=== PATIENT | female | born 1935 | race Caucasian/White ===

== ENCOUNTER 2016-10-27 15:39 | Inpatient (IN) | payer MEDICARE, BC ==
[~2016-10-27] VITALS: Ht 152.4 cm; Wt 49.3 kg
[~2016-10-27 15:39] MED LIST: ASPIRIN E.C. 8181 MG PO; CARDI-OMEGA1000 MG PO; CITRUS CALCIUM200 MG PO; SIMVASTATIN40 MG PO; VERAPAMIL240 MG/TAB PO
[2016-12-05] MEDS ORDERED: CALCIUM 600MG+D1 TAB PO (13:47)
[2016-12-05] MEDS ORDERED: ZESTRIL 20MG TA20 MG PO (13:48)
[2016-12-05] MEDS ORDERED: ZOCOR 10MG10 MG PO (13:48)
[2016-12-05] MEDS ORDERED: FOLIC ACID 40400 MCG PO (13:49)
[2016-12-05] MEDS ORDERED: VITAMIN C500 MG PO (13:49)
[2016-12-05] MEDS ORDERED: MIRALAX PA17 GM/Dose PO (13:49)
[2016-12-05] MEDS ORDERED: FERROUS SU325 MG/TAB PO (13:50)
[2016-12-05] MEDS ORDERED: ALEVE 220MG220 MG PO (13:50)
[2016-12-09] VITALS (13 sets, daily range): BP systolic 95–170; BP diastolic 39–65; PULSE 60–76; TEMP 97.5–98.9
--- NOTE | 2016-12-09 10:45 | NUR ---
returned to room from PACU per bed, awake and alert but sleepy, O2 on at 3L/NC and O2 sat 100%, gandhi cath patent draining clear yellow urine, aquacel dressing to left shoulder CD&I, abduction sling in place to left upper arm, full assessment completed, see interventions for further info, rolled to side and no wrinkles in linens or wires under patient, SCDS on bilaterally,
--- NOTE | 2016-12-09 11:00 | NUR ---
dozing between checks, daughter and son at bedside
--- NOTE | 2016-12-09 11:15 | NUR ---
resting quietly, states pain is "OK", given sips of water and tolerates well
--- NOTE | 2016-12-09 12:00 | NUR ---
rests quietly betwen checks, given pudding and applesauce and if toelrates will instruct on ordering regular food, denies needs,
--- NOTE | 2016-12-09 12:30 | NUR ---
had pudding and applesauce and tolerated well
--- NOTE | 2016-12-09 13:00 | NUR ---
Dr Alonzo in to see patient, continues to doze between checks
--- NOTE | 2016-12-09 13:30 | NUR ---
massielwakens easily and just states she is sleepy, offered regular food but declines at this time, denies needs
--- NOTE | 2016-12-09 13:52 | NUR ---
radiology in for xrays of left shoulder
--- NOTE | 2016-12-09 15:15 | NUR ---
appears to be sleeping, in bed with eyes closed, resp quiet and easy
--- NOTE | 2016-12-09 15:39 | NUR ---
home health care worker met with patient to discuss discharge planning. Patient lives alone in [place], [place] and plans to return upon discharge. Patient's daughter, Vashti #[phone] plans to stay with patient Thursday night. Will continue to follow to assist with discharge planning. Patient's primary care physician is Dr Soliz in [place]. Patient denies difficulty obtaining her prescriptions.
--- NOTE | 2016-12-09 16:45 | NUR ---
awake now and visiting with daughter, instructed on ordering regular food and verbalizes understanding
--- NOTE | 2016-12-09 19:04 | NUR ---
bedside shift report given to MALLY koo
--- NOTE | 2016-12-09 21:49 | NUR ---
Assessment completed. Patient is A&O x 4. VSS, remains on 2 liters of supplemental oxygen via nasal cannula through the night per orders. Denies any pain at this time. Aquacell dressing to left shoulder is CDI with immbolizer maintained and ice. Reports tingling to left lower arm at this time. BLE scds on. Indwelling gandhi catheter to DD with yellow clear output. Tolerating diet with no c/o nausea. IVF infusings with intermittent antibiotic per orders. Daughter is at bedside tonight. Voices no concerns or needs. Bed is in a low position with call light in reach.
[2016-12-10 04:59] VITALS: BP 113/48; PULSE 70; TEMP 98.4
[2016-12-10 05:28] LABS: HEMATOCRIT 33.3 % (37.0-47.0); HEMOGLOBIN 10.9 g/dl (12.5-16.0)
--- NOTE | 2016-12-10 06:32 | NUR ---
Patient has rested well through the night. VSS. Continues to deny pain at this time. Aquacell dressing to left shoulder is CDI with immbolizer and ice maintained. Indwelling gandhi catheter to DD with large amount of yellow clear. INT this morning as antibiotics are finished. Daughter remains at bedside. Bed is in a low position with call light in reach.
--- NOTE | 2016-12-10 06:53 | NUR ---
REPORT FROM NONA BAL.
[2016-12-10 07:29] VITALS: BP 104/47; PULSE 68; TEMP 97.8
--- NOTE | 2016-12-10 09:19 | NUR ---
PT SITTING UP IN BED PT CONTINUES TO DENY PAIN AND REFUSING PAIN MEDICATIONS AT THIS TIME. DRESSING TO LEFT SHOULDER CDI. STRONG RADIAL PULSES BILATERALLY. DAUGHTER AT BEDSIDE.
--- NOTE | 2016-12-10 11:05 | NUR ---
Initial visit; Patient and daughter, Vashti thanked Pin Attacher for looking in on Sofi, listening and offering encouragement.
--- NOTE | 2016-12-10 11:24 | NUR ---
mechanical maintenance worker met with patient and daughter. Patient plans discharge home today and has made arrangements with local transportation bus and son to take her to outpatient therapy appointments in [place]. Patient states she is open to bathing assistance and worker made a referral to [facility]. Patient is aware of the private pay cost and will contact agency to schedule appointments.
[2016-12-10 11:34] VITALS: BP 108/35; PULSE 60; TEMP 98.3
[2016-12-10 16:09] VITALS: BP 104/42; PULSE 57; TEMP 97.6
--- NOTE | 2016-12-10 20:00 | NUR ---
Assessment completed. Patient is A&O x 4 states she's feeling much better than earlier today when she was feeling "groggy." VSS, blood pressure is 101/44 patient has run in the low 100's since surgery. Denies any pain at this time. Aquacell dressing to left shoulder is CDI with shoulder immbolizer and ice maintained. BLE scds on. Voiding with no difficulitites, urine is yellow clear. Tolerating diet with no c/o nausea. Ambulated in the hallway with staff, gait was steady. Voices no concerns or needs at this time. Bed is in a low position with call light in reach.
--- NOTE | 2016-12-10 20:04 | NUR ---
REPORT TO NONA BAL.
[2016-12-10 20:21] VITALS: BP 101/44; PULSE 62; TEMP 98
[2016-12-10 23:48] VITALS: BP 105/50; PULSE 53; TEMP 97.9
[2016-12-11 03:28] VITALS: BP 107/47; PULSE 60; TEMP 97
[2016-12-11 05:27] LABS: HEMATOCRIT 31.2 % (37.0-47.0)
--- NOTE | 2016-12-11 05:36 | NUR ---
Patient has rested well throughout the night. VSS. Continues to deny any pain. Aquacell dressing to left shoulder is CDI with immbolizer and ice maintained. BLE scds on. No complaints or needs. Bed remains in a low position with call light in reach.
--- NOTE | 2016-12-11 07:17 | NUR ---
BEDSIDE REPORT FROM NONA BAL. DR ZAVALA IN TO SEE PT THIS AM SEE CHART FOR ORDERS. DR. BATISTA CONSULTED FOR MEDICAL MANGEMENT OF POST OP HYPOTENSION. RN STUDENT LIBERTAD TO WORK WITH PT THIS SHIFT.
--- NOTE | 2016-12-11 07:22 | NUR ---
Bedside shift report given to MALLY Chatterjee.
--- NOTE | 2016-12-11 08:11 | NUR ---
Pt is pleasant and cooperative during assessment. Reports pain in the left shoulder is muscular soreness. Currently has ice pack in place on left shoulder while sitting in the recliner. Call light and personal items within reach.
[2016-12-11 08:13] VITALS: BP 124/46; PULSE 66; TEMP 97.8
--- NOTE | 2016-12-11 09:31 | NUR ---
tankroom worker met with patient and nurse as patient now desires [facility] bed with Dr Soliz. Worker made a referral to Barbara at [facility]. Patient states her family can transport upon discharge. Will await screening.
[2016-12-11 12:26] VITALS: BP 179/58; PULSE 62; TEMP 97.5
[2016-12-11 13:11] LABS: BASO % 0.2 % (0.0-2.0); GRAN # 19.5 (1.4-6.5); GRAN % 84.4 % (42.2-75.2); LYMPH # 1.9 (1.2-3.4); LYMPH % 8.2 % (20.0-51.0); MEAN CELL VOLUME 92 fl (80.0-100.0); MEAN CORPUSCULAR HGB CONC 33 g/dl (33.0-37.0); MEAN PLATELET VOLUME 10.8 fl (7.4-10.4); MONO # 1.5 (0.1-0.6); MONO % 6.3 % (1.7-9.3); PLATELET COUNT 323 K/mm3 (130-400); RED BLOOD COUNT 3.96 M/mm3 (4.10-5.30); REDCELL DISTRIBUTION WIDTH-CV 13.8 % (11.5-14.5)
[2016-12-11 13:20] LABS: CALCIUM 9.6 mg/dL (8.4-10.2); CREATININE, serum 0.84 mg/dL (0.52-1.25); HEMATOCRIT 36.3 % (37.0-47.0); HEMOGLOBIN 11.8 g/dl (12.5-16.0); MAGNESIUM 2.2 mg/dL (1.6-2.3); MEAN CORPUSCULAR HEMOGLOBIN 30 pg (27.0-31.0); POTASSIUM 4.2 mmol/L (3.4-5.0)
--- NOTE | 2016-12-11 14:14 | NUR ---
Barbara with [facility] bed feels that patient will be accepted on 12/12/16. Patient states her son will transport. Worker spoke with daughter and advised of above plan, per patient's request.
--- NOTE | 2016-12-11 19:11 | NUR ---
REPORT TO CAROL BAL.
[2016-12-11 19:15] LABS: COLLECTION METHOD CLEAN CATCH
[2016-12-11 19:20] LABS: PH 6 (5-8); SQUAMOUS EPITHELIAL None Seen /hpf; URINE APPEARANCE Clear; URINE BACTERIA None Seen /hpf; URINE BILIRUBIN Negative (NEGATIVE); URINE BLOOD Negative (NEGATIVE); URINE COLOR Yellow; URINE GLUCOSE Negative (NEGATIVE); URINE KETONE Negative (NEGATIVE); URINE LEUKOCYTE ESTERASE Negative (NEGATIVE); URINE NITRATE Negative (NEGATIVE); URINE PROTEIN(semi-quant) Negative (NEGATIVE); URINE RBC 0-2 /hpf
--- NOTE | 2016-12-11 20:00 | NUR ---
PT READY FOR BED. UP TO BR. THEN INTO BED. CALL LIGHT IN REACH. S
--- NOTE | 2016-12-11 20:00 | NUR ---
PT SITTING UP IN RECLINER. LEFT SHOULDER DRSG CDI. IMMOBILIZER INTACT. PAIN LEVEL4. SEE MAR FOR SCD TYLENOL. [facility], PT READY FOR BED. PT RELATES HAVING NO OTHER S/S TIA OR CVA. CALL LIGHT IN REACH.
[2016-12-11 20:40] VITALS: BP 147/62; PULSE 74; TEMP 98
[2016-12-12 00:04] VITALS: BP 130/52; PULSE 66; TEMP 97.7
[2016-12-12 04:41] LABS: HEMOGLOBIN 10.5 g/dl (12.5-16.0)
[2016-12-12 05:02] VITALS: BP 147/49; PULSE 62; TEMP 97.9
--- NOTE | 2016-12-12 05:53 | NUR ---
PT HAS SLEPT WELL THROUGH THE NIGHT. NO DISORIENTATION.
--- NOTE | 2016-12-12 06:39 | NUR ---
PT SLEPT VERY WELL LAST NIGHT. PT NO TIA- LIKE EPISODE THROUGHOUT THE NIGHT.
--- NOTE | 2016-12-12 08:00 | NUR ---
PATIENT IS A&O. VSS. PATIENT REPORTS PAIN IN RLE IS MANAGED BUT MAY WANT SOMETHING FOR PAIN BEFORE AM THERAPY. RTK DRESSING IS CD&I WITH AQUACEL. TEDS TO BLE. SCD'S CURRENTLY OFF. POSITIVE PEDAL PULSES TO BLE. PATIENT EAT/DRINK/VOIDING SUFFICENT AMOUNTS. NO C/O N/V. BREAKFAST TRAY AT BEDSIDE. AM MEDS GIVEN BY STUDENT. SEE STUDENT NOTES. HEAD TO TOE ASSESSMENT COMPLETE. NO OTHER NEEDS. CALL LIGHT IN REACH.
[2016-12-12 09:25] VITALS: BP 159/55; PULSE 69; TEMP 97.7
--- NOTE | 2016-12-12 09:32 | NUR ---
Pt is currently resting in bed with lights off and personal items in place. Ice pack has been applied to the left shoulder following session with physical therapy. Pt reports improvement in pain following morning scheduled Tylenol PO 1000mg. Denies any need for further PRN medication administration.
--- NOTE | 2016-12-12 11:30 | NUR ---
horticulture worker met with patient and presented IM. Jimenez with [facility] accepts patient to swing bed today. Patient states her son will transport today and will arrive before Noon. Worker faxed orders to [facility].
[2016-12-12 11:31] VITALS: BP 159/55; PULSE 69; TEMP 97.7
--- NOTE | 2016-12-12 11:32 | NUR ---
Follow-up visit; Patient thanked [employer] Pl[employer] Bullet Maker for looking in on her again and wishing her well and offering God's blessings.
[2016-12-12 11:42] VITALS: BP 159/55; PULSE 69; TEMP 97.7
--- NOTE | 2016-12-12 12:20 | NUR ---
LAB AT BEDSIDE.
--- NOTE | 2016-12-12 12:30 | NUR ---
LAB RESULTS REPORTED TO HOSPITALIST HEALTH DATA ANALYST. OK TO DISCHARGE PER HOSPITALIST. FAMILY AT BEDSIDE AND READY TO GO.
[2016-12-12 12:32] LABS: BASO % 0.2 % (0.0-2.0); EOS # 0.2 (0.0-0.7); EOS % 1.3 % (0-4.0); GRAN # 12.5 (1.4-6.5); GRAN % 69.9 % (42.2-75.2); LYMPH # 3.9 (1.2-3.4); LYMPH % 21.7 % (20.0-51.0); MEAN CELL VOLUME 93 fl (80.0-100.0); MEAN CORPUSCULAR HGB CONC 32 g/dl (33.0-37.0); MEAN PLATELET VOLUME 10.1 fl (7.4-10.4); MONO # 1.1 (0.1-0.6); MONO % 6.4 % (1.7-9.3); PLATELET COUNT 340 K/mm3 (130-400); RED BLOOD COUNT 3.96 M/mm3 (4.10-5.30)
[2016-12-12 12:33] LABS: HEMATOCRIT 36.8 % (37.0-47.0); HEMOGLOBIN 11.9 g/dl (12.5-16.0); MEAN CORPUSCULAR HEMOGLOBIN 30 pg (27.0-31.0)
--- NOTE | 2016-12-12 12:45 | NUR ---
PATIENT DISCHARGING VIA WHEELCHAIR TO PERSONAL VEHICLE WITH SON. PATIENT DISCHARGING TO [facility]. CALLED REPORT TO NURSE AT [facility]. DISCHARGE INFO PACKET GIVEN TO FAMILY. DC'D RIGHT FORARM IV. IV CATH TIP INTACT AND PATIENT TOLERATED WELL. COVERED SITE WITH BANDAID. CHANGED LTS DRESSING AND APPLIED NEW AQUACEL. PATIENT NOW DISCHARGED.
== END 2016-12-12 12:45 | disposition swing bed (61) | DRG 483 ==
LOC: JCC 12-09 05:45
PROVIDERS: Internal Medicine; Nurse Practitioner; ADMIT Orthopaedic Surgery
PROC: 0RRK0JZ Replacement of Left Shoulder Joint with Synthetic Substitute, Open Approach (ICD-10-PCS; principal; 2016-12-09 07:30)
DX: M19.012 Primary osteoarthritis, left shoulder (principal); I10 Essential (primary) hypertension; I48.91 Unspecified atrial fibrillation; Z85.3 Personal history of malignant neoplasm of breast; I95.81 Postprocedural hypotension
CPT/HCPCS: 99223; 99232-AI; A4315; A9284; C1713; C1776; J0171; J0330; J0690; J1100; J1170; J1885; J2250; J2405; J2704; J3010; J7120

== ENCOUNTER → 2016-11-20 | Outpatient (CLI) | payer MEDICARE, BC ==
[~2016-11-20] MED LIST changes: +ALEVE 220MG220 MG PO; +CALCIUM 600MG+D1 TAB PO; +FERROUS SU325 MG/TAB PO; +FOLIC ACID 40400 MCG PO; +MIRALAX PA17 GM/Dose PO; +VITAMIN C500 MG PO; +ZESTRIL 20MG TA20 MG PO; +ZOCOR 10MG10 MG PO
[2016-11-20 16:33] LABS: HIV 1/2 Antibodies Non-Reactive; HIV-1p24 Antigen Non-Reactive
== END ==
LOC: COL.LAB 15:32
PROVIDERS: Orthopaedic Surgery
DX: Z01.812 Encounter for preprocedural laboratory examination (principal)

== ENCOUNTER 2017-04-15 15:41 | Inpatient (IN) | payer MEDICARE, BC ==
[~2017-04-15] VITALS: Ht 152.4 cm; Wt 52.8 kg
[2017-06-30] MEDS ORDERED: ARIMIDEX1 MG PO (07:23)
[2017-06-30] MEDS ORDERED: ZOCOR 20MG20 MG PO (07:25)
[2017-06-30] MEDS ORDERED: COREG 6.256.25 MG/TA PO (07:27)
[2017-07-01] VITALS (12 sets, daily range): BP systolic 126–155; BP diastolic 54–78; PULSE 16–77; TEMP 97.8–98.2
[2017-07-01] MEDS ORDERED: PRINIVIL20 MG PO (05:34)
[2017-07-02 04:39] VITALS: BP 105/66; PULSE 80; TEMP 97.9
[2017-07-02 04:44] VITALS: BP 132/55; PULSE 65; TEMP 98.6
[2017-07-02 06:19] LABS: HEMATOCRIT 33.8 % (37.0-47.0); HEMOGLOBIN 11.1 g/dl (12.5-16.0)
[2017-07-02] MEDS ORDERED: NORCO 325 MG-7.1 TAB PO (06:51)
[2017-07-02] MEDS ORDERED: ASPI325T6 PO (06:51)
[2017-07-02] MEDS ORDERED: ROXICODONE 55 MG/TAB PO (06:52)
[2017-07-02 07:55] VITALS: BP 148/58; PULSE 65; TEMP 97.9
[2017-07-02 11:01] VITALS: BP 137/58; PULSE 55; TEMP 98.1
[2017-07-02 15:24] VITALS: BP 106/42; PULSE 55; TEMP 98
[2017-07-02 19:39] VITALS: BP 117/39; PULSE 65; TEMP 98.1
[2017-07-03 00:21] VITALS: BP 168/56; PULSE 61; TEMP 97.2
[2017-07-03 04:34] VITALS: BP 133/43; PULSE 65; TEMP 98
[2017-07-03 08:00] VITALS: BP 126/85; PULSE 59; TEMP 97.9
[2017-07-03 11:21] VITALS: BP 140/62; PULSE 56; TEMP 98.1
[2017-07-03 16:30] VITALS: BP 191/74; PULSE 68; TEMP 97.8
[2017-07-03 20:46] VITALS: BP 130/42; PULSE 67; TEMP 98
[2017-07-04 00:23] VITALS: BP 120/45; PULSE 65; TEMP 98.5
[2017-07-04 04:16] VITALS: BP 111/42; PULSE 63; TEMP 98.6
[2017-07-04 08:31] VITALS: BP 140/56; PULSE 82; TEMP 99.2
== END 2017-07-04 11:25 | disposition swing bed (61) | DRG 470 ==
LOC: JCC 07-01 05:09
PROVIDERS: Orthopaedic Surgery
PROC: 0SRD0J9 Replacement of Left Knee Joint with Synthetic Substitute, Cemented, Open Approach (ICD-10-PCS; principal; 2017-07-01 07:30)
DX: M17.12 Unilateral primary osteoarthritis, left knee (principal); I10 Essential (primary) hypertension; Z96.612 Presence of left artificial shoulder joint; Z85.3 Personal history of malignant neoplasm of breast
CPT/HCPCS: A4314; A9284; C1713; C1776; J0690; J1100; J2250; J2405; J2704; J3010; J7120

== ENCOUNTER → 2017-04-22 | Outpatient (CLI) | payer MEDICARE, BC | LOC: MC.RAD 08:53 | DX: Z12.31 Encounter for screening mammogram for malignant neoplasm of breast (principal); Z85.3 Personal history of malignant neoplasm of breast; Z92.3 Personal history of irradiation; Z98.890 Other specified postprocedural states ==

== ENCOUNTER → 2017-06-24 | Outpatient (CLI) | payer MEDICARE, BC ==
[2017-06-24 12:22] LABS: HIV 1/2 Antibodies Non-Reactive; HIV-1p24 Antigen Non-Reactive
== END ==
LOC: COL.LAB 11:13
PROVIDERS: Orthopaedic Surgery
DX: Z01.812 Encounter for preprocedural laboratory examination (principal); M17.12 Unilateral primary osteoarthritis, left knee

== ENCOUNTER 2017-09-28 09:31 | Inpatient (IN) | payer MEDICARE, BC ==
[~2017-09-28] VITALS: Ht 152.4 cm; Wt 56.7 kg
[~2017-09-28 09:31] MED LIST changes: +ARIMIDEX1 MG PO; +ASPI325T6 PO; +COREG 6.256.25 MG/TA PO; +NORCO 325 MG-7.1 TAB PO; +PRINIVIL20 MG PO; +ROXICODONE 55 MG/TAB PO; +ZOCOR 20MG20 MG PO
[2017-11-24] VITALS (11 sets, daily range): BP systolic 114–162; BP diastolic 43–69; PULSE 52–81; TEMP 98–98.3
[2017-11-24 15:05] LABS: BASO % 0.3 % (0.0-2.0); EOS # 0.5 (0.0-0.7); EOS % 5.6 % (0-4.0); GRAN # 5.6 (1.4-6.5); GRAN % 64.2 % (42.2-75.2); HEMATOCRIT 37.5 % (37.0-47.0); HEMOGLOBIN 12.1 g/dl (12.5-16.0); LYMPH # 1.7 (1.2-3.4); LYMPH % 19.3 % (20.0-51.0); MEAN CELL VOLUME 91 fl (80.0-100.0); MEAN CORPUSCULAR HEMOGLOBIN 29 pg (27.0-31.0); MEAN CORPUSCULAR HGB CONC 32 g/dl (33.0-37.0); MEAN PLATELET VOLUME 10.6 fl (7.4-10.4); MONO # 0.9 (0.1-0.6); MONO % 10.4 % (1.7-9.3); PLATELET COUNT 296 K/mm3 (130-400); RED BLOOD COUNT 4.13 M/mm3 (4.10-5.30); REDCELL DISTRIBUTION WIDTH-CV 13.9 % (11.5-14.5)
[2017-11-24 15:15] LABS: ALBUMIN 3.2 gm/dL (3.5-5.0); BILIRUBIN,TOTAL 0.7 mg/dL (0.0-1.0); CREATININE, serum 0.87 mg/dL (0.52-1.25); MAGNESIUM 2.1 mg/dL (1.6-2.3); POTASSIUM 4.1 mmol/L (3.4-5.0); TOTAL PROTEIN 6.3 gm/dL (6.4-8.2)
[2017-11-24 15:45] LABS: TSH w REFLEX 1.87 uIU/mL (0.465-4.680)
[2017-11-25 03:49] VITALS: BP 141/53; PULSE 66; TEMP 97.8
[2017-11-25 06:48] LABS: HEMOGLOBIN 10.6 g/dl (12.5-16.0)
[2017-11-25 06:51] LABS: HEMATOCRIT 33.5 % (37.0-47.0)
[2017-11-25 07:35] VITALS: BP 125/43; PULSE 62; TEMP 98.2
[2017-11-25 11:30] VITALS: BP 117/63; PULSE 60; TEMP 98.4
[2017-11-25 15:53] VITALS: BP 167/65; PULSE 73; TEMP 98.2
[2017-11-25 19:29] VITALS: BP 156/66; PULSE 84; TEMP 98.2
[2017-11-25 23:16] VITALS: BP 163/65; PULSE 68; TEMP 98.1
[2017-11-26] VITALS (7 sets, daily range): BP systolic 154–192; BP diastolic 52–90; PULSE 71–95; TEMP 97.7–99.2
[2017-11-27 03:40] VITALS: BP 163/78; PULSE 93; TEMP 98.2
[2017-11-27 07:11] VITALS: BP 198/75; PULSE 89; TEMP 98.4
[2017-11-27 08:08] LABS: BASO % 0.1 % (0.0-2.0); EOS # 0.1 (0.0-0.7); EOS % 0.8 % (0-4.0); GRAN # 12.6 (1.4-6.5); HEMOGLOBIN 12.1 g/dl (12.5-16.0); LYMPH # 1.1 (1.2-3.4); LYMPH % 7.2 % (20.0-51.0); MEAN CELL VOLUME 88 fl (80.0-100.0); MEAN CORPUSCULAR HEMOGLOBIN 30 pg (27.0-31.0); MEAN CORPUSCULAR HGB CONC 34 g/dl (33.0-37.0); MEAN PLATELET VOLUME 10.1 fl (7.4-10.4); MONO % 6.5 % (1.7-9.3); PLATELET COUNT 336 K/mm3 (130-400); RED BLOOD COUNT 4.07 M/mm3 (4.10-5.30); REDCELL DISTRIBUTION WIDTH-CV 13.9 % (11.5-14.5)
[2017-11-27 08:11] LABS: HEMATOCRIT 35.9 % (37.0-47.0)
[2017-11-27 08:20] LABS: CALCIUM 9.1 mg/dL (8.4-10.2); CREATININE, serum 0.81 mg/dL (0.52-1.25); POTASSIUM 3.7 mmol/L (3.4-5.0)
[2017-11-27] MEDS ORDERED: HCTZ 25MG TAB25 MG PO (09:08)
[2017-11-27] MEDS ORDERED: NORVASC 5MG5 MG/TAB PO ×2 (09:08)
[2017-11-27 11:44] VITALS: BP 136/55; PULSE 76; TEMP 98.3
== END 2017-11-27 13:15 | disposition swing bed (61) | DRG 470 ==
LOC: JCC 11-24 06:45
PROVIDERS: Hospitalist; Orthopaedic Surgery; Physician Assistant
PROC: 0SRC0J9 Replacement of Right Knee Joint with Synthetic Substitute, Cemented, Open Approach (ICD-10-PCS; principal; 2017-11-24 11:20)
DX: M17.11 Unilateral primary osteoarthritis, right knee (principal); I10 Essential (primary) hypertension; Z85.3 Personal history of malignant neoplasm of breast; E78.5 Hyperlipidemia, unspecified; I44.0 Atrioventricular block, first degree
CPT/HCPCS: 99223; 99232-AI; 99233-AI; A4314; A9284; C1713; C1776; J0690; J2250; J2370; J2704; J2765; J3010; J7030; J7120

== ENCOUNTER → 2017-11-17 | Outpatient (CLI) | payer MEDICARE, BC ==
[2017-11-17 16:27] LABS: HIV 1/2 Antibodies Non-Reactive; HIV-1p24 Antigen Non-Reactive
== END ==
LOC: COL.LAB 15:38
PROVIDERS: Orthopaedic Surgery
DX: Z01.812 Encounter for preprocedural laboratory examination (principal); M17.11 Unilateral primary osteoarthritis, right knee

== ENCOUNTER → 2018-05-20 | Outpatient (CLI) | payer MEDICARE, BC ==
[~2018-05-20] MED LIST changes: +HCTZ 25MG TAB25 MG PO; +NORVASC 5MG5 MG/TAB PO
== END ==
LOC: MC.RAD 10:49
DX: Z12.31 Encounter for screening mammogram for malignant neoplasm of breast (principal); C50.412 Malignant neoplasm of upper-outer quadrant of left female breast; Z98.890 Other specified postprocedural states; Z92.3 Personal history of irradiation

== ENCOUNTER → 2019-06-03 | Outpatient (CLI) | payer MEDICARE, BC | LOC: MC.RAD 13:16 | DX: Z12.31 Encounter for screening mammogram for malignant neoplasm of breast (principal) ==